=== PATIENT | female | born 1950 | race Two or more races ===

== ENCOUNTER 2025-02-07 05:55 | Day surgery (SDC) | payer OTHER ==
[2025-02-01 12:23] VITALS: BP 130/85
[~2025-02-07] VITALS: Ht 149.9 cm; Wt 59.0 kg
[2025-02-07] MEDS ORDERED: CEFAZOLIN SODIUM 1,000 MG VIAL IV ONE (13:15)
[2025-02-07] MEDS ORDERED: GENTAMICIN SULFATE 40 MG/ML VIAL IR ONE (13:15)
[2025-02-07] MEDS ORDERED: LIDOCAINE HCL 1%/EPINEPHRINE 20ML VIAL IJ ONE (13:15)
[2025-02-07] MEDS ORDERED: MACROBID 100 M100 MG PO (13:59)
[2025-02-07] MEDS ORDERED: ACETAMINOPHEN-1 EAC2 PO (14:01)
[2025-02-07] MEDS ORDERED: MORPHINE SULFATE 4 MG/ML VIAL IV ONE (14:30)
== END 2025-02-07 17:45 | disposition home or self-care (01) ==
LOC: CIR.AMB 05:55
PROVIDERS: ATTEND Obstetrics & Gynecology Gynecology
DX: N81.5 Vaginal enterocele (principal); N81.6 Rectocele; N81.11 Cystocele, midline

== ENCOUNTER 2025-02-25 02:34 | Emergency (ER) | payer OTHER ==
[~2025-02-25] VITALS: Ht 152.4 cm; Wt 59.0 kg
[~2025-02-25 02:34] MED LIST: ACETAMINOPHEN-1 EAC2 PO; MACROBID 100 M100 MG PO
[2025-02-25 05:09] LABS: BASO % 0.3 % (0.1-1.2); EOS # 0.08 (0.04-0.54); EOS % 0.7 % (0.7-7.0); LYMPH # 1.50 (1.18-3.74); LYMPH % 13.9 % (19.3-53.1); MEAN PLATELET VOLUME 9.40 fl (9.4-12.4); MONO # 0.78 (0.24-0.82); MONO % 7.2 % (4.7-12.5); NEUT # 8.36 (1.56-6.13); NEUT % 77.5 % (34.0-71.1); RED CELL DISTRIBUTION WIDTH 13.2 % (11.6-14.4)
[2025-02-25 05:36] LABS: INR 1.04
[2025-02-25 05:41] LABS: ALT/SGPT 18.0 U/L (12-78); AST/SGOT 18.0 U/L (15-37); BILIRUBIN TOTAL 0.56 mg/dL (0.3-1.2); BUN CREA RATIO 26.0 (7.0-25.0); CREATININE SERUM 0.58 mg/dL (0.55-1.02); GFR 101.9; GLOBULINA 3.6 G/DL (2.4-3.5); GLUCOSE FASTING 100.0 mg/dL (65-100); OSMOLALITY SERUM 286.0 MOSM/KG (275-295)
[2025-02-25 06:30] LABS: URINE APPEARANCE Clear; URINE BILIRRUBIN Negative (NEGATIVE); URINE BLOOD Large; URINE COLOR Yellow; URINE GLUCOSE Negative (NEGATIVE); URINE KETONE Negative (NEGATIVE); URINE LEUKOCYTE Moderate; URINE NITRATE Negative; URINE PROTEIN Trace (NEGATIVE); URINE UROBILINOGEN 0.2 E.U./dl
[2025-02-25 06:31] LABS: URINE BACTERIA 83.9 uL (0.0-1933); URINE CAST 0.00 uL (0.0-1.40); URINE EPITHELIAL CELLS 9.6 uL (0.0-38.8); URINE RBC 255.9 uL (0.0-20.8); URINE WBC 31.3 uL (0.0-23.2)
== END 2025-02-25 07:37 | disposition home or self-care (01) ==
LOC: ER 02:34
DX: N93.9 Abnormal uterine and vaginal bleeding, unspecified (principal); R10.32 Left lower quadrant pain; N20.0 Calculus of kidney; K59.00 Constipation, unspecified; I70.8 Atherosclerosis of other arteries; K40.90 Unilateral inguinal hernia, without obstruction or gangrene, not specified as recurrent; Z91.013 Allergy to seafood